=== PATIENT | male | born 1955 | race Caucasian/White ===

== ENCOUNTER 2019-06-12 08:12 | Day surgery (SDC) | payer OTHER ==
--- OUTSIDE RECORDS SUMMARY | 2019-06-12 08:15 | XMS REPORT | Summary of Care ---
:1955 Author Organization [facility] Address [address] [place], [place] [address]- Encounter HQ Encntr_orlando(FIN) [id number] Date(s): 05/08/19 - 05/08/19 [facility] [address] [place] [phone]- [phone] Discharge Disposition: Home or Self Care Attending Physician: Ga Adair MD Referring Physician: Ga Adair MD Vital Signs No data available for this section Problem List Condition Effective Dates Status Health Status Informant Acne(Confirmed) Resolved Bronchitis(Confirmed) Resolved Bursitis(Confirmed) Resolved Hemorrhoids(Confirmed) Resolved High cholesterol(Confirmed) Resolved 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) Urinary frequency(Confirmed) Active Inguinal hernia(Confirmed) Resolved Kidney stones(Confirmed) Resolved MARSHA (stress urinary incontinence), Active male(Confirmed) Skin cancer(Confirmed) Resolved Malignant neoplasm of Active prostate(Confirmed) Morbid obesity(Confirmed) Active Mumps(Confirmed) Resolved Pneumonia(Confirmed) Resolved Proteinuria(Confirmed) Active Elevated prostate specific antigen Active (PSA)(Confirmed) Chicken pox(Confirmed) Resolved Warts(Confirmed) Resolved Allergies, Adverse Reactions, Alerts No Known Medication Allergies Medications No data available for this section Results No data available for this section Immunizations No data available for this section Procedures Procedure Date Related Diagnosis Body Site Status Circumcision Completed Colonoscopy Completed Eye repair Completed Prostatectomy Completed Social History Social History Type Response Substance Abuse Use: None. Alcohol Never Smoking Status Never smoker; Exposure to Tobacco Smoke None; Cigarette Smoking Last 365 Days No; Reg Smoking Cessation Counseling No entered on: 04/14/19 Assessment and Plan No data available for this section
--- OUTSIDE RECORDS SUMMARY | 2019-06-12 08:15 | XMS REPORT | Continuity of Care Document ---
:1955 Author Organization [employer] Care Team Providers Name Role Phone [facility] [employer] Unavailable Unavailable Problems Problem Status Onset Classification Date Comments Source Date Reported C61 - MALIGNANT Active 04/21/20 [facility] NEOPLASM OF 19 [facility] PROSTATE R97 Acne Resolved Problem 05/28/2019 [facility], [facility], [facility] [place] Bronchitis Resolved Problem 05/28/2019 [facility], [facility], [facility] [place] Bursitis Resolved Problem 05/28/2019 [facility], [facility], [facility] [place] Hemorrhoids Resolved Problem 05/28/2019 Medical Group, OPII[facility]bons, [facility] [place] High Resolved Problem 05/28/2019 Medical cholesterol Group, [facility], [facility] [place] ED of organic Active Problem 05/28/2019 Medical origin(Confirme Group, d) [facility]bons, [facility] [place] Urinary Active Problem 05/28/2019 Medical frequency Group, [facility], [facility] [place] Inguinal hernia Resolved Problem 05/28/2019 [facility] Group, [facility], [facility] [place] Kidney stones Resolved Problem 05/28/2019 [facility] Group, OP[facility]bons, [facility] [place] MARSHA , Active Problem 05/28/2019 Medical male(Confirmed) Group, [facility], [facility] [place] Skin cancer Resolved Problem 05/28/2019 Medical Group, [facility], [facility] [place] Malignant Active Problem 05/28/2019 Medical neoplasm of Group, prostate [facility], [facility] [place] Morbid obesity Active Problem 05/28/2019 [facility] Group, [facility], [facility] [place] Mumps Resolved Problem 05/28/2019 [facility], [facility], [facility] [place] Pneumonia Resolved Problem 05/28/2019 [facility] Group, [facility], [facility] [place] Proteinuria Active Problem 05/28/2019 Medical Group, [facility], [facility] [place] Elevated Active Problem 05/28/2019 Medical prostate Group, specific OPID antigen [facility] (Confirmed) [facility] [place] Chicken pox Resolved Problem 05/28/2019 Medical Group, EDEN Gibbons, [facility] [place] Warts Resolved Problem 05/28/2019 Medical Group, SUMAND [facility], [facility] [place] Medications Medication Details Route Status Patient Ordering Order Source Instructions Provider Date Cholecalciferol See Active 97552 UNT Oral Instruction 019 Medical Capsule [Decara] s, 1 cap PO Group once a month, # 4 tab, 3 Refill(s), Pharmacy: [facility] [place] Allergies, Adverse Reactions, Alerts Substance Category Reaction Severity Reaction Status Date Comments Source type Reported No Known Assertion Drug Medication allergy Medical Allergies Group Immunizations No Data Provided for This Section Results Order Results Value Reference Date Interpretation Comments Source Name Range URINE POC UA Bili Negative Negative AND *NA* 019 Medical STOOL (05/26/19 1:15 PM) Group URINE POC UA Negative Negative AND LeukEst *NA* 019 Medical STOOL (05/26/19 1:15 PM) Group URINE POC UA Nit Negative Negative AND *NA* 019 Medical STOOL (05/26/19 1:15 PM) Group URINE POC UA SG 1.020 <=1.030 AND 019 Medical STOOL Group URINE POC UA pH 7.0 5.0 - 8.0 AND 019 Medical STOOL Group URINE POC UA Clear Clear AND Turbidity *NA* 019 Medical STOOL (05/26/19 1:15 PM) Group URINE POC UA Ket Negative Negative AND mg/dL mg/dL 019 Medical STOOL Group URINE POC UA Uro 0.2 0.1 - 1.0 AND 019 Medical STOOL Group URINE POC UA Bld Negative Negative AND *NA* 019 Medical STOOL (05/26/19 1:15 PM) Group URINE POC UA Prot 30 mg/dL Negative AND mg/dL 019 Medical STOOL Group URINE POC UA Glu Negative Negative MH AND mg/dL mg/dL 019 Medical STOOL Group URINE POC UA Color Yellow Yellow MH AND *NA* 019 Medical STOOL (05/26/19 1:15 PM) Group URINE POC UA Negative Negative MH AND LeukEst *NA* 019 Medical STOOL (04/12/19 1:47 PM) Group URINE POC UA Color Yellow Yellow MH AND *NA* 019 Medical STOOL (04/12/19 1:47 PM) Group URINE POC UA Clear Clear MH AND Turbidity *NA* 019 Medical STOOL (04/12/19 1:47 PM) Group URINE POC UA Ket Negative Negative MH AND mg/dL mg/dL 019 Medical STOOL Group URINE POC UA SG 1.025 <=1.030 MH AND 019 Medical STOOL Group URINE POC UA pH 6.0 5.0 - 8.0 AND 019 Medical STOOL Group URINE POC UA Nit Negative Negative MH AND *NA* 019 Medical STOOL (04/12/19 1:47 PM) Group URINE POC UA Bili Negative Negative MH AND *NA* 019 Medical STOOL (04/12/19 1:47 PM) Group URINE POC UA Bld Negative Negative AND *NA* 019 Medical STOOL (04/12/19 1:47 PM) Group URINE POC UA Uro 0.2 0.1 - 1.0 AND 019 Medical STOOL Group URINE POC UA Prot 30 mg/dL Negative MH AND mg/dL 019 Medical STOOL Group URINE POC UA Glu Negative Negative MH AND mg/dL mg/dL 019 Medical STOOL Group Pathology Reports No Data Provided for This Section Diagnostic Reports Report Value Date Source Abdomen/Pelvis w IV CT ABDOMEN/PELVIS WITH IV CONTRAST 05/18/[address] [facility] [place] [address] HISTORY: PROSTATE CANCER; elevated prostate-specific antigen; patient reports history of prostatectomy TECHNIQUE: Axial imaging of abdomen and pelvis with multiplanar reformations. IV CONTRAST: 100cc Omnipaque. GI CONTRAST: Yes. CT imaging performed at this location utilizes radiation dose optimization techniques which include one or more of the following: -Automated exposure control -Adjustment of the mA and/or kV according to patient size -Use of iterative reconstruction technique CT Radiation Dose DLP 1115.96 mGy-cm COMPARISON: Whole body bone scan dated 05/08/2019 FINDINGS: LOWER CHEST: The lung bases are clear. LIVER, BILIARY, PANCREAS, SPLEEN, AND ADRENALS: The liver, spleen, pancreas, and adrenal glands are normal. No calcified gallstones. No biliary ductal dilation. GENITOURINARY: There are relatively small bilateral benign simple renal cysts. Kidneys are otherwise normal. No hydronephrosis. Normal ureters. Normal urinary bladder. Changes of prostatectomy are noted. STOMACH AND BOWEL AND APPENDIX: Normal stomach and duodenum. Normal small bowel. No small bowel obstruction. Mild/moderate colonic diverticulosis. No CT evidence of acute diverticulitis. The colon is otherwise normal. Normal appendix. OTHER SOFT TISSUES, VESSELS, AND BONES: No inguinal, para iliac, or aortocaval adenopathy. No mesenteric adenopathy. No ascites. Bilateral inguinal surgical clips are suggestive of bilateral inguinal he rnia repair. Trace arterial calcifications are noted. No CT evidence of osseous metastatic disease in the abdomen or pelvis. IMPRESSION: 1. No evidence of malignant or metastatic disease in the abdomen or pelvis. 2. Simple renal cysts, colonic diverticulosis, prostatectomy, probable prior bilateral inguinal hernia repair. SL: [id number] Chest 2 views DX Clinical Indication: - R05 Cough, malignant neoplasm of prostate, elevated prostate specific antigen (PSA) 05/18/2019 EDEN Larsen Comparison: None FINDINGS: PA and lateral views the chest are submitted for interpretation. The lungs are clear and there are no effusions. There is no visible pneumothorax. The cardiomediastinal contours are within normal limits. There are no clinically significant osseous abnormalities noted. IMPRESSION: 1. No radiographic evidence of acute cardiopulmonary process. SL: [id number] Bone / joint SPECT EXAM: NM Bone Joint Imaging Whole Body 05/08/2019 EDEN Gibbons [place] EXAM: NM Bone, Joint SPECT- CT DATE: 05/08/2019 11:22 CDT INDICATION: Prostate cancer, restaging. - Prostate cancer COMPARISON: None. TECHNIQUE: Approximately 2 hours delayed whole body images were obtained after intravenous administration of 23.2 mCi of Tc-99m MDP. Additional static images of the pelvis were obtained. SPECT CT images were also obtained. FINDINGS: Increased focal tracer uptake noted in the bilateral acromioclavicular joints (right more than left), sternoclavicular joints, thoracolumbar spine, and SI joints likely degenerative in nature. The rest of tracer distribution throughout the body is physiologic. IMPRESSION: No evidence of bony metastases. Bone scan NM EXAM: NM Bone Joint Imaging Whole Body 05/08/2019 [facility] [place] EXAM: NM Bone, Joint SPECT- CT DATE: 05/08/2019 11:22 CDT INDICATION: Prostate cancer, restaging. - Prostate cancer COMPARISON: None. TECHNIQUE: Approximately 2 hours delayed whole body images were obtained after intravenous administration of 23.2 mCi of Tc-99m MDP. Additional static images of the pelvis were obtained. SPECT CT images were also obtained. FINDINGS: Increased focal tracer uptake noted in the bilateral acromioclavicular joints (right more than left), sternoclavicular joints, thoracolumbar spine, and SI joints likely degenerative in nature. The rest of tracer distribution throughout the body is physiologic. IMPRESSION: No evidence of bony metastases. Consultation Notes No Data Provided for This Section Discharge Summaries No Data Provided for This Section History and Physicals No Data Provided for This Section Vital Signs Vital Sign Value Date Comments Source Height 177.8 cm 05/26/2019 [facility] Weight 111.364 05/26/2019 Medical [facility] BMI Calculated 35.23 05/26/2019 [facility] Systolic (mm Hg) 149 05/26/2019 Medical [facility] Diastolic (mm Hg) 80 05/26/2019 [facility] Heart Rate 61 05/26/2019 [facility] Height 177.8 cm 04/12/2019 Medical [facility] BMI Calculated 35.23 04/12/2019 Medical [facility] Weight 111.364 04/12/2019 Medical [facility] Heart Rate 66 04/12/2019 [facility] Systolic (mm Hg) 171 04/12/2019 [facility] Diastolic (mm Hg) 84 04/12/2019 Medical [facility] Encounters Location Location Encounter Encounter Reason Attending ADM DC Status Source Details Type Number For Provider Date Date Visit Outpatient [id number] Ga [facility] 04/12 [facility] Outpatient [id number] [facility] 04/12 04/13 Urology [facility] /2018 Medical [facility] Outpt Diag [id number] [facility] 05/08 05/09 [facility]2018 [facility] [place] Outpatient [id number] [facility] 05/10 [facility] [id number] [facility] 05/10 05/10 [facility] /2018 [facility] Outpt Diag [id number] [facility] 05/18 05/19 [facility]patient Services /2018 [facility] [id number] [facility] 05/26 [facility] Outpatient [id number] [facility] 05/26 05/27 [facility] /2018 [facility] Outpatient [id number] [facility] 06/15 [facility] [place] Procedures Procedure Code Date Perfomer Comments Source Circumcision [id number] [facility] Colonoscopy [id number] [facility] Eye repair [id number] [facility] Prostatectomy [id number] [facility] Circumcision [id number] [facility] [place] Colonoscopy [id number] [facility] [place] Eye repair [id number] [facility] [place] Prostatectomy [id number] [facility] [place] Circumcision 21344139 [facility] [place] Colonoscopy [id number] [facility] Eye repair 98719926 [facility] [place] Prostatectomy [id number] [facility] [place] Assessment and Plan No Data Provided for This Section Plan of Care No Data Provided for This Section Social History Social History Date Source Social History TypeResponse 04/14/2019 [facility] Substance Abuse Use: None. Alcohol Never Smoking Status Never smoker; Exposure to Tobacco Smoke None; Cigarette Smoking Last 365 Days No; Reg Smoking Cessation Counseling No entered on: 05/26/19 Social History TypeResponse 04/14/2019 [facility] [place] Substance Abuse Use: None. Alcohol Never Smoking Status Never smoker; Exposure to Tobacco Smoke None; Cigarette Smoking Last 365 Days No; Reg Smoking Cessation Counseling No entered on: 04/14/19 Social History TypeResponse 04/14/2019 [facility] Substance Abuse Use: None. Alcohol Never Smoking Status Never smoker; Exposure to Tobacco Smoke None; Cigarette Smoking Last 365 Days No; Reg Smoking Cessation Counseling No entered on: 04/14/19 Family History No Data Provided for This Section Advance Directives No Data Provided for This Section Functional Status No Data Provided for This Section
--- OUTSIDE RECORDS SUMMARY | 2019-06-12 08:16 | XMS REPORT | Summary of Care ---
:1955 Author Organization [facility] Urology [facility] Address [address] [place] [address], [address] [place] [address]- Encounter HQ Daniel(FIN) [id number] Date(s): 04/12/19 - 04/12/19 [facility] Urology [facility] [address] [facility] [place] [address] [place] [address]- Discharge Disposition: Home or Self Care Attending Physician: Ga dAair MD Vital Signs Most recent to oldest [Reference Range]: 1 Height 177.8 cm (04/12/19 1:51 PM) Blood Pressure [90-140/60-90 mmHg] 171/84 mmHg *HI* (04/12/19 1:51 PM) Peripheral Pulse Rate [60-100 bpm] 66 bpm (04/12/19 1:51 PM) Weight 111.364 kg (04/12/19 1:51 PM) Body Mass Index 35.23 m2 (04/12/19 1:51 PM) Problem List Condition Effective Dates Status Health Status Informant Acne(Confirmed) Resolved Bronchitis(Confirmed) Resolved Bursitis(Confirmed) Resolved Hemorrhoids(Confirmed) Resolved High cholesterol(Confirmed) Resolved 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) Urinary frequency(Confirmed) Active Inguinal hernia(Confirmed) Resolved Kidney stones(Confirmed) Resolved Skin cancer(Confirmed) Resolved Malignant neoplasm of Active prostate(Confirmed) Mumps(Confirmed) Resolved Pneumonia(Confirmed) Resolved Elevated prostate specific antigen Active (PSA)(Confirmed) Chicken pox(Confirmed) Resolved Warts(Confirmed) Resolved Allergies, Adverse Reactions, Alerts No Known Medication Allergies Medications No Known Medications Results Most recent to oldest [Reference Range]: 1 POC UA Bili [Negative] Negative *NA* (04/12/19 1:47 PM) POC UA Bld [Negative] Negative *NA* (04/12/19 1:47 PM) POC UA Color [Yellow] Yellow *NA* (04/12/19 1:47 PM) POC UA Glu [Negative mg/dL] Negative mg/dL *NA* (04/12/19 1:47 PM) POC UA Ket [Negative mg/dL] Negative mg/dL *NA* (04/12/19 1:47 PM) POC UA LeukEst [Negative] Negative *NA* (04/12/19 1:47 PM) POC UA Nit [Negative] Negative *NA* (04/12/19 1:47 PM) POC UA pH [5.0-8.0] 6.0 (04/12/19 1:47 PM) POC UA Prot [Negative mg/dL] 30 mg/dL *ABN* (04/12/19 1:47 PM) POC UA SG [<=1.030] 1.025 (04/12/19 1:47 PM) POC UA Turbidity [Clear] Clear *NA* (04/12/19 1:47 PM) POC UA Uro [0.1-1.0 EU/dL] 0.2 EU/dL (04/12/19 1:47 PM) Immunizations No data available for this section [...]
--- OUTSIDE RECORDS SUMMARY | 2019-06-12 08:16 | XMS REPORT | Summary of Care ---
:1955 Author Organization [facility] Urology [facility] Address [address] [place] [address], [address] [place] [address]- Encounter HQ Daniel(EDIL) [id number] Date(s): 05/26/19 - 05/26/19 [facility]rology [facility] [address] [place] [address] [place] [address] [place] [phone]- [phone] Discharge Disposition: Home or Self Care Attending Physician: Ga Adair MD Vital Signs Most recent to oldest [Reference Range]: 1 Height 177.8 cm (05/26/19 1:42 PM) Blood Pressure [90-140/60-90 mmHg] 149/80 mmHg *HI* (05/26/19 1:42 PM) Peripheral Pulse Rate [60-100 bpm] 61 bpm (05/26/19 1:42 PM) Weight 111.364 kg (05/26/19 1:42 PM) Body Mass Index 35.23 m2 (05/26/19 1:42 PM) Problem List Condition Effective Dates Status [...] Reactions, Alerts No Known Medication Allergies Medications Decara 25,000 intl units oral capsule See Instructions, 1 cap PO once a month, # 4 tab, 3 Refill(s), Pharmacy: [facility] [place] Start Date: 05/26/19 Status: Ordered Results Most recent to oldest [Reference Range]: 1 POC UA Bili [Negative] Negative *NA* (05/26/19 1:15 PM) POC UA Bld [Negative] Negative *NA* (05/26/19 1:15 PM) POC UA Color [Yellow] Yellow *NA* (05/26/19 1:15 PM) POC UA Glu [Negative mg/dL] Negative mg/dL *NA* (05/26/19 1:15 PM) POC UA Ket [Negative mg/dL] Negative mg/dL *NA* (05/26/19 1:15 PM) POC UA LeukEst [Negative] Negative *NA* (05/26/19 1:15 PM) POC UA Nit [Negative] Negative *NA* (05/26/19 1:15 PM) POC UA pH [5.0-8.0] 7.0 (05/26/19 1:15 PM) POC UA Prot [Negative mg/dL] 30 mg/dL *ABN* (05/26/19 1:15 PM) POC UA SG [<=1.030] 1.020 (05/26/19 1:15 PM) POC UA Turbidity [Clear] Clear *NA* (05/26/19 1:15 PM) POC UA Uro [0.1-1.0 EU/dL] 0.2 EU/dL (05/26/19 1:15 PM) Immunizations No data available for this section Procedures Procedure Date Related Diagnosis Body Site Status Circumcision Completed Colonoscopy Completed Eye repair Completed Prostatectomy Completed Social History Social History Type Response Substance Abuse Use: None. Alcohol Never Smoking Status Never smoker; Exposure to Tobacco Smoke None; Cigarette Smoking Last 365 Days No; Reg Smoking Cessation Counseling No entered on: 05/26/19 Assessment and Plan No data available for this section
--- OUTSIDE RECORDS SUMMARY | 2019-06-12 08:16 | XMS REPORT | Summary of Care ---
:1955 Author Organization [facility] Urology [facility] Address [address] [place] [address] [address] [place] [address]- Encounter HQ Encntr_alias(FIN) [id number] Date(s): 05/10/19 - 05/10/19 [facility] Urology [address] [place] [address]- Attending Physician: Ga Adair MD Vital Signs No [...]
[2019-06-12] MEDS ORDERED: Ringers Lactate 1,000 ML IV ONE (08:27)
[2019-06-12] MEDS ORDERED: LIDOCAINE 1% MPF 5 ML VIAL ONE (11:19)
[2019-06-12] MEDS ORDERED: PROPOFOL 200 MG/20 ML VIAL IV ONE (11:19)
--- NOTE | 2019-06-12 12:10 | ENDO RPT ---
[address], [address] COLONOSCOPY PROCEDURE REPORT EXAM DATE: 06/12/2019 PATIENT NAME: Oscar Lake MR #: [id number] BIRTHDATE: 1955 ATTENDING: Trung Menon MD STATUS: outpatient REVERSE LOGISTICS ANALYST: Tawny Taylor and Raven Koehler RN INDICATIONS: The patient is a 63 yr old Male here for a colonoscopy due to colon cancer screening PROCEDURE PERFORMED: Colonoscopy MEDICATIONS: Per Anesthesia. ESTIMATED BLOOD LOSS: None CONSENT: The patient understands the risks and benefits of the procedure and understands that these risks include, but are not limited to: sedation, allergic reaction, infection, perforation and/or bleeding. Alternative means of evaluation and treatment include, among others: physical exam, x-rays, and/or surgical intervention. The patient elects to proceed with this endoscopic procedure. DESCRIPTION OF PROCEDURE: During intra-op preparation period all mechanical medical equipment was checked for proper function. Hand hygiene and appropriate measures for infection prevention was taken. Procedure, possible complications, alternatives including, but not limited to possibility of bleeding, perforation, tear, infection, sepsis, need for surgery, need for blood transfusion, were explained to the patient. After the risks, benefits and alternatives of the procedure were thoroughly explained, Informed consent was verified, confirmed and timeout was successfully executed by the treatment team. The patient was placed in the left lateral position. A digital rectal exam was performed and revealed external hemorrhoids and A digital rectal exam was performed and revealed internal hemorrhoids. After appropriate level of anesthesia, the scope was passed. The [id number] ([id number]) endoscope was introduced through the anus and advanced to the cecum, which was identified by transillumination from the light source, the appendix, and the ileocecal valve. The quality of the prep was good. The instrument was then slowly withdrawn as the colon was fully examined. Scope withdrawal time was . COLON FINDINGS: Diverticula was found in the descending colon. The opening was medium sized. Retroflexed views revealed no abnormalities. The scope was then completely withdrawn from the patient and the procedure terminated. ADVERSE EVENTS: There were no complications. IMPRESSIONS: 1. Diverticula in the descending colon 2. External hemorrhoids 3. Internal hemorrhoids RECOMMENDATIONS: 1. follow-up: office 1-2 week(s) 2. no seeds in diet RECALL: Return in 5-10 year(s) for Colonoscopy. Trung Menon MD eSigned: Trung Menon MD 06/12/2019 12:10 PM cc: CPT CODES: ICD9 CODES: PATIENT NAME: Oscar Lake MR#: [id number]
== END 2019-06-12 12:30 | disposition home or self-care (01) ==
LOC: OR 08:12
PROVIDERS: ATTEND Surgery
PROC: 0DJD8ZZ Inspection of Lower Intestinal Tract, Via Natural or Artificial Opening Endoscopic (ICD-10-PCS; principal; 2019-06-12 09:45)
DX: Z12.11 Encounter for screening for malignant neoplasm of colon (principal); K57.30 Diverticulosis of large intestine without perforation or abscess without bleeding; K64.8 Other hemorrhoids; K64.4 Residual hemorrhoidal skin tags; E07.9 Disorder of thyroid, unspecified; Z85.46 Personal history of malignant neoplasm of prostate; Z85.828 Personal history of other malignant neoplasm of skin; Z80.0 Family history of malignant neoplasm of digestive organs; Z83.3 Family history of diabetes mellitus; Z82.49 Family history of ischemic heart disease and other diseases of the circulatory system
CPT/HCPCS: 45378; J2704